=== PATIENT | female | born 1995 | race Caucasian/White ===

== ENCOUNTER 2018-06-27 09:32 | Emergency (ER) | payer OTHER ==
[~2018-06-27 09:32] MED LIST: BUDE8.43 NS; CETI-176 PO; CHOL100052 PO; EPIN0.3P15 IM; EVEP1CAP2 PO; FLAX100029 PO; LOOVRAL PO; MONT10TA PO; SERT-1 PO
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
--- NOTE | 2018-06-27 10:29 | RADIOLOGY IMAGING REPORT ---
[place] [facility] [place]: Breanna Torres : 1995 MR: [id number] V: [id number] EXAM DATE: ORDERING PHYSICIAN: FRANKIE DORADO TECHNOLOGIST: Location: [facility] Patient: Breanna Torres : 1995 Visit/Account:[id number] Date of Sevice: 06/27/2018 EXAMINATION: CT cervical spine without IV contrast HISTORY: In the CC COMPARISON: None. TECHNIQUE: Axial images were obtained from the skull base through the upper thoracic spine without I V contrast administration. Coronal and sagittal reformatted images were obtained from the axial [facility] e data. One of the following dose optimization techniques was utilized in the performance of this exam: Autom ated exposure control; adjustment of the mA and/or kV according to the patient's size; or use of an i terative reconstruction technique. Specific details can be referenced in the facility's radiology C T exam operational policy. FINDINGS: Alignment: Reversal the normal cervical lordosis; likely secondary to patient positioning or muscular spasm Cranio-cervical junction: Negative. Vertebral bodies: Negative. Posterior elements: Negative. Hardware: None. Disc Spaces: Negative. Soft tissues: Negative. Visualized upper chest: Negative. IMPRESSION: 1. No acute fracture or acute subluxation within the cervical spine. Report Dictated By: Braxton Loera DO at 06/27/2018 10:21 AM Report E-Signed By: Braxton Loera DO at 06/27/2018 10:25 AM WSN:[id number]
[2018-06-27 10:49] VITALS: BP 129/77
== END 2018-06-27 10:50 | disposition home or self-care (01) ==
LOC: ER 09:57
DX: S16.1XXA Strain of muscle, fascia and tendon at neck level, initial encounter (principal); V49.60XA Unspecified car occupant injured in collision with unspecified motor vehicles in traffic accident, initial encounter
CPT/HCPCS: 72125; 99284

== ENCOUNTER → 2018-07-22 | Outpatient (CLI) | payer OTHER ==
[~2018-07-22] MED LIST changes: +SERT-181 PO
--- NOTE | 2018-07-22 09:26 | RADIOLOGY IMAGING REPORT ---
FACILITY: [facility] PATIENT NAME: Breanna Torres : 1995 MR: [id number] V: [id number] EXAM DATE: ORDERING PHYSICIAN: SERGEI MCWILLIAMS TECHNOLOGIST: Location: [facility] Patient: Breanna Torres : 1995 Visit/Account:[id number] Date of Sevice: 07/22/2018 Pelvic ultrasound HISTORY: Pelvic pain. COMPARISON: None available. Findings: Standard endovaginal pelvic ultrasound with color flow and spectral analysis. Uterus: Uterus measurement: 7.4 x 4.7 x 2.8 cm Endometrium measurement: 16 mm The endometrium and myometrium are homogeneous with no suspicious mass or vascular abnormality identi fied. Adnexa: Right ovary: 2.3 x 1.7 x 1.2 cm Left ovary: 1.8 x 1.7 x 1.5 cm No suspicious ovarian or adnexal mass. Normal arterial and venous flow is documented within each ova ry on Doppler evaluation. Free fluid: Mild to moderate free fluid. Urinary bladder: Empty IMPRESSION: 1. Mild to moderate free fluid in the pelvis, possibly physiologic. 2. Otherwise normal pelvic ultrasound. Report Dictated By: Vijay Syed MD at 07/22/2018 9:21 AM Report E-Signed By: Vijay Syed MD at 07/22/2018 9:22 AM WSN:[id number]
== END ==
LOC: RAD 08:33
PROVIDERS: ATTEND Obstetrics & Gynecology
DX: Z02.9 Encounter for administrative examinations, unspecified (principal)

== ENCOUNTER 2018-09-29 01:18 | Emergency (ER) | payer SELFPAY ==
[~2018-09-29 01:18] MED LIST changes: +LORA10CA3 PO
--- NOTE | 2018-09-29 01:26 | ER Report ---
History and Physical Time Seen By MD: 01:23 HPI/ROS CHIEF COMPLAINT: Chest pain, pleuritic in nature, upper abdominal pain HISTORY OF PRESENT ILLNESS: Patient is a 23-year-old female here with complaints of several day history of left upper chest pain, radiation down her left side into her upper abdomen. Patient initially thought that her pain was caused by musculoskeletal strain however pain reportedly worsened and has a pleuritic component to it. Denies prior history of similar symptoms. Patient is maintaining SPO2 greater than 92%, denies cough, fevers or chills. Patient is hemodynamically stable at time of evaluation. REVIEW OF SYSTEMS: Constitutional: No fever, no chills. Eyes: No discharge. ENT: No sore throat. Cardiovascular: + Left sided chest pain, no palpitations. Pleuritic component worse with inspiration Respiratory: No cough, no shortness of breath. Gastrointestinal: + Mild left upper abdominal pain, no vomiting. Genitourinary: No hematuria. Musculoskeletal: No back pain. Skin: No rashes. Neurological: No headache. Allergies: Coded Allergies: shellfish derived (Verified Allergy, Severe, throat tight, hives, 09/29/18) Home Meds Active Scripts Ondansetron 4 Mg Odt (ONDANSETRON 4 MG ODT) 4 Mg Tab.rapdis, 4 MG PO Q8H PRN for NAUSEA, #20 TAB Prov:OLIVIER YOU DO 09/29/18 Rivaroxaban 15 Mg (XARELTO 15 MG) 15 Mg Tablet, 15 MG PO BID for 21 Days, #42 TAB Prov:FRANKIE DORADO DO 09/29/18 Sertraline Hcl (SERTRALINE HCL) 100 Mg Tablet, 1 TAB PO QDAY, #90 TAB 3 Refills Prov:SERGEI MCWILLIAMS MD 07/02/18 Norgestrel-Ethinyl Estradiol (LOW-OGESTREL) 1 Each Tab, 1 EACH PO DAILY, #3 PACK 4 Refills Prov:SERGEI MCWILLIAMS MD 07/02/18 Reported Medications [place]/Linoleic/Gamoleni (EVENING PRIMROSE 1,000 MG SFTG) 1,000 Mg Capsule, 1000 MG PO QDAY, CAPSULE 09/29/18 Cholecalciferol (Vitamin D3) (VITAMIN D3) 1,000 Unit Tablet, 1000 UNIT PO QDAY, TAB 09/29/18 Loratadine (CLARITIN) 10 Mg Capsule, 10 MG PO DAILY, CAPSULE 08/17/18 Montelukast Sodium (SINGULAIR) 10 Mg Tablet, 1 TAB PO QDAY, TAB 12/02/17 Discontinued Reported Medications Flaxseed Oil (FLAXSEED OIL) 1,000 Mg Capsule, 1000 MG PO DAILY, CAPSULE 12/02/17 Smoking Status: Never Smoker Constitutional Vital Sign - Last 24 Hours 09/29/18 09/29/18 09/29/18 09/29/18 01:30 01:32 01:33 02:00 Temp 98.8 Pulse 86 89 Resp 11 B/P (MAP) 116/80 (92) 118/79 116/75 (89) Pulse Ox 95 95 O2 Delivery Room Air 09/29/18 09/29/18 09/29/18 09/29/18 02:03 02:18 02:30 02:33 Pulse 86 95 90 B/P (MAP) 116/84 (95) Pulse Ox 96 89 93 09/29/18 09/29/18 09/29/18 09/29/18 03:18 03:23 03:30 03:38 Pulse 81 106 88 Resp 23 22 15 B/P (MAP) 115/80 (92) Pulse Ox 92 95 94 09/29/18 03:53 Pulse 87 Resp 31 Pulse Ox 95 Intake and Output 09/28/18 09/28/18 09/29/18 15:02 23:02 07:02 Intake Total 1000 ml Balance 1000 ml Physical Exam General Appearance: The patient is alert, has no immediate need for airway protection and no signs of toxicity. No acute distress, maintaining oxygen saturations greater than 92% Eyes: Pupils equal and round no pallor or injection. ENT, Mouth: Mucous membranes are moist. Respiratory: There are no retractions, lungs are clear to auscultation. Cardiovascular: Regular rate and rhythm. Gastrointestinal: Abdomen is soft and non tender, no masses, bowel sounds normal. Neurological: No focal neurological deficits Skin: Warm and dry, no rashes. Musculoskeletal: Neck is supple non tender. Extremities are nontender, nonswollen and have full range of motion. DIFFERENTIAL DIAGNOSIS: After history and physical exam differential diagnosis was considered for chest pain including but not limited to myocardial ischemia, pericarditis pulmonary embolus, chest wall pain, pleural inflammation and pulmonary infectious causes. Medical Decision Making Data Points Result Diagram: 09/29/18 0155 09/29/18 0155 Laboratory Hematology Test 09/29/18 01:20 09/29/18 01:55 Urine Color Yellow Urine Clarity Clear Urine pH 7.0 pH (4.8-9.5) Urine Specific [place] 1.024 Urine Protein Negative mg/dL (NEGATIVE) Urine Glucose (UA) Negative mg/dL (NEGATIVE) Urine Ketones Negative mg/dL (NEGATIVE) Urine Blood Negative (NEGATIVE) Urine Nitrite Negative (NEGATIVE) Urine Bilirubin Negative (NEGATIVE) Urine Urobilinogen 0.2 mg/dL (0.2-1.9) Urine Leukocyte Esterase Trace (NEGATIVE) Urine RBC 2 /HPF (0-2/HPF) Urine WBC 2 /HPF (0-5/HPF) Urine Squamous Epithelial Cells Many /LPF (</=FEW) Urine Bacteria Negative /HPF (NONE-FEW) Urine Mucus Few /HPF (NONE-FEW) Red Blood Count 4.84 M/uL (4.17-5.56) Mean Corpuscular Volume 90.9 fL (80.0-96.0) Mean Corpuscular Hemoglobin 31.2 pg (26.0-33.0) Mean Corpuscular Hemoglobin Concent 34.3 g/dL (32.0-36.0) Red Cell Distribution Width 12.7 % (11.5-14.5) Mean Platelet Volume 8.5 fL (7.2-11.1) Neutrophils (%) (Auto) 60.7 % (39.4-72.5) Lymphocytes (%) (Auto) 26.3 % (17.6-49.6) Monocytes (%) (Auto) 9.5 % (4.1-12.4) Eosinophils (%) (Auto) 3.2 % (0.4-6.7) Basophils (%) (Auto) 0.3 % (0.3-1.4) Nucleated RBC Relative Count (auto) 0.0 /100WBC Neutrophils # (Auto) 7.6 K/uL (2.0-7.4) Lymphocytes # (Auto) 3.3 K/uL (1.3-3.6) Monocytes # (Auto) 1.2 K/uL (0.3-1.0) Eosinophils # (Auto) 0.4 K/uL (0.0-0.5) Basophils # (Auto) 0.0 K/uL (0.0-0.1) Nucleated RBC Absolute Count (auto) 0.00 K/uL D-Dimer Quantitative (PE/DVT) 2.22 ug/ml (0-0.50) Sodium Level 139 mmol/L (137-145) Potassium Level 3.8 mmol/L (3.5-5.0) Chloride Level 105 mmol/L (98-107) Carbon Dioxide Level 24 mmol/L (22-31) Blood Urea Nitrogen 13 mg/dl (7-18) Creatinine 0.90 mg/dl (0.52-1.04) Glomerular Filtration Rate Calc > 60.0 Random Glucose 99 mg/dl (75-110) Calcium Level 9.6 mg/dl (8.4-10.2) Total Bilirubin 0.4 mg/dl (0.2-1.3) Aspartate Amino Transf (AST/SGOT) 27 U/L (0-35) Alanine Aminotransferase (ALT/SGPT) 33 U/L (0-56) Alkaline Phosphatase 65 U/L (0-126) Troponin I < 0.012 ng/ml Total Protein 7.4 g/dl (6.3-8.2) Albumin 4.0 g/dl (3.5-5.0) Lipase 56 U/L (23-300) Human Chorionic Gonadotropin, Qual Negative (NEGATIVE) Chemistry Test 09/29/18 01:20 09/29/18 01:55 Urine Color Yellow Urine Clarity Clear Urine pH 7.0 pH (4.8-9.5) Urine Specific [place] 1.024 Urine Protein Negative mg/dL (NEGATIVE) Urine Glucose (UA) Negative mg/dL (NEGATIVE) Urine Ketones Negative mg/dL (NEGATIVE) Urine Blood Negative (NEGATIVE) Urine Nitrite Negative (NEGATIVE) Urine Bilirubin Negative (NEGATIVE) Urine Urobilinogen 0.2 mg/dL (0.2-1.9) Urine Leukocyte Esterase Trace (NEGATIVE) Urine RBC 2 /HPF (0-2/HPF) Urine WBC 2 /HPF (0-5/HPF) Urine Squamous Epithelial Cells Many /LPF (</=FEW) Urine Bacteria Negative /HPF (NONE-FEW) Urine Mucus Few /HPF (NONE-FEW) White Blood Count 12.6 k/uL (4.5-11.0) Red Blood Count 4.84 M/uL (4.17-5.56) Hemoglobin 15.1 g/dL (12.0-16.0) Hematocrit 44.0 % (34.0-47.0) Mean Corpuscular Volume 90.9 fL (80.0-96.0) Mean Corpuscular Hemoglobin 31.2 pg (26.0-33.0) Mean Corpuscular Hemoglobin Concent 34.3 g/dL (32.0-36.0) Red Cell Distribution Width 12.7 % (11.5-14.5) Platelet Count 241 K/uL (150-450) Mean Platelet Volume 8.5 fL (7.2-11.1) Neutrophils (%) (Auto) 60.7 % (39.4-72.5) Lymphocytes (%) (Auto) 26.3 % (17.6-49.6) Monocytes (%) (Auto) 9.5 % (4.1-12.4) Eosinophils (%) (Auto) 3.2 % (0.4-6.7) Basophils (%) (Auto) 0.3 % (0.3-1.4) Nucleated RBC Relative Count (auto) 0.0 /100WBC Neutrophils # (Auto) 7.6 K/uL (2.0-7.4) Lymphocytes # (Auto) 3.3 K/uL (1.3-3.6) Monocytes # (Auto) 1.2 K/uL (0.3-1.0) Eosinophils # (Auto) 0.4 K/uL (0.0-0.5) Basophils # (Auto) 0.0 K/uL (0.0-0.1) Nucleated RBC Absolute Count (auto) 0.00 K/uL D-Dimer Quantitative (PE/DVT) 2.22 ug/ml (0-0.50) Glomerular Filtration Rate Calc > 60.0 Calcium Level 9.6 mg/dl (8.4-10.2) Total Bilirubin 0.4 mg/dl (0.2-1.3) Aspartate Amino Transf (AST/SGOT) 27 U/L (0-35) Alanine Aminotransferase (ALT/SGPT) 33 U/L (0-56) Alkaline Phosphatase 65 U/L (0-126) Troponin I < 0.012 ng/ml Total Protein 7.4 g/dl (6.3-8.2) Albumin 4.0 g/dl (3.5-5.0) Lipase 56 U/L (23-300) Human Chorionic Gonadotropin, Qual Negative (NEGATIVE) Coagulation Test 09/29/18 01:55 D-Dimer Quantitative (PE/DVT) 2.22 ug/ml Urinalysis Test 09/29/18 01:20 Urine Color Yellow Urine Clarity Clear Urine pH 7.0 pH (4.8-9.5) Urine Specific [place] 1.024 Urine Protein Negative mg/dL (NEGATIVE) Urine Glucose (UA) Negative mg/dL (NEGATIVE) Urine Ketones Negative mg/dL (NEGATIVE) Urine Blood Negative (NEGATIVE) Urine Nitrite Negative (NEGATIVE) Urine Bilirubin Negative (NEGATIVE) Urine Urobilinogen 0.2 mg/dL (0.2-1.9) Urine Leukocyte Esterase Trace (NEGATIVE) Urine RBC 2 /HPF (0-2/HPF) Urine WBC 2 /HPF (0-5/HPF) Urine Squamous Epithelial Cells Many /LPF (</=FEW) Urine Bacteria Negative /HPF (NONE-FEW) Urine Mucus Few /HPF (NONE-FEW) EKG/Imaging Imaging PATIENT NAME: Breanna Torres : 1995 MR: [id number] V: [id number] EXAM DATE: ORDERING PHYSICIAN: FRANKIE DORADO TECHNOLOGIST: Location: [facility] Patient: Breanna Torres : 1995 Visit/Account:[id number] Date of Sevice: 09/29/2018 CT ABDOMEN PELVIS W/ CON HISTORY: Pain with deep breathing on left side of abdomen for 3 days. COMPARISON: None. CT pulmonary angiogram was performed at the same time as the current examination. TECHNIQUE: Axial images were obtained from the lung bases through the symphysis pubis with intravenous contrast. Sagittal and coronal reformats were performed. One of the following dose optimization techniques was utilized in the performance of this exam: Automated exposure control; adjustment of the mA and/or kV according to the patient's size; or use of an iterative reconstruction technique. Specific details can be referenced in the facility's radiology CT exam operational policy. CONTRAST: 75 mL IV Isovue-370. FINDINGS: LOWER CHEST: Please see the CT pulmonary angiogram report that is dictated separately LIVER: Normal. GALLBLADDER/BILIARY: Contracted gallbladder has a normal appearance. No intrahepatic or extrahepatic ductal dilation. PANCREAS: Normal. SPLEEN: Normal. ADRENALS: Normal. KIDNEYS/URETERS/BLADDER: Normal. GI/MESENTERY/PERITONEAL CAVITY: There is no bowel obstruction. There is no wall thickening or pericolonic stranding. The appendix is normal. No free air. There is a moderate amount of simple pelvic free fluid that tracks into the right lower quadrant. VESSELS: No atherosclerotic disease. No aneurysm. No dissection. NODES: Normal. PELVIS: Uterus and ovaries are normal. There are pelvic phleboliths. BONES/VERTEBRA/SOFT TISSUES: There are numerous Schmorl nodes. Vertebral body heights are maintained. No listhesis. IMPRESSION: 1. No findings in the abdomen or pelvis to account for the patient's symptoms. 2. Moderate simple pelvic free fluid is likely physiologic. 3. Please see the CT pulmonary angiogram report dictated separately regarding positive findings in the chest. PATIENT NAME: Breanna Torres : 1995 MR: [id number] V: [id number] EXAM DATE: ORDERING PHYSICIAN: FRANKIE DORADO TECHNOLOGIST: Location: [facility] Patient: Breanna Torres : 1995 Visit/Account:[id number] Date of Sevice: 09/29/2018 CTA CHEST WW/O CNTR (PULM ANG) HISTORY: Elevated d-dimer. COMPARISON: None. CT abdomen and pelvis was performed at the same time as the current examination. TECHNIQUE: Pulmonary embolus protocol - Thin-slice axial imaging of the chest was performed during maximal pulmonary arterial opacification with intravenous nonionic iodinated contrast. 3D coronal slab MIPs and 2D reconstructions in the coronal and sagittal planes were performed to aid in pulmonary embolus detection. [employer] images have been stored on PACS. One of the following dose optimization techniques was utilized in the performance of this exam: Automated exposure control; adjustment of the mA and/or kV according to the patient's size; or use of an iterative reconstruction technique. Specific details can be referenced in the facility's radiology CT exam operational policy. CONTRAST: 75 mL of IV Isovue-370. FINDINGS: PULMONARY ARTERIES: There is adequate opacification of the pulmonary arteries to the segmental branches. There are filling defects within segmental and subsegmental left lower lobe and subsegmental right lower lobe pulmonary arteries. Pulmonary arteries are normal in caliber. THORACIC INLET: Normal. AORTA: No aneurysm or dissection. There is no atherosclerosis of the aorta. HEART/PERICARDIUM: The heart is normal. There is no ventricular septal deviation. There is no pericardial effusion. There is no coronary artery calcification. MEDIASTINUM/SARAH: Normal mediastinum. No lymphadenopathy. LUNGS/PLEURA: There is a trace left pleural effusion. There is patchy opacity in the left lower lobe greater than right. There is a wedge-shaped left lower lobe opacity (image 68 series 3). No pneumothorax. The airways are normal. UPPER ABDOMEN: Please see the CT abdomen and pelvis report that is dictated sep arately. MUSCULOSKELETAL/VERTEBRA/BODY WALL: There are Schmorl nodes. Vertebral body heights are maintained. Alignment is normal. IMPRESSION: 1. Subsegmental right lower lobe and segmental and subsegmental left lower lobe pulmonary emboli. Overall clot burden is mild. No heart strain. 2. Wedge-shaped opacity in the left lower lobe is suspicious for developing pulmonary infarct. 3. Trace left pleural effusion is likely reactive. These findings were discussed by phone with FRANKIE DORADO on 09/29/2018 3:15 AM. ED Course/Re-evaluation ED Course Patient is a 23-year-old female here with complaints of pleuritic left sided chest pain, worse with inspiration. Denies cough, fevers or chills. Patient was found to have a negative troponin but her d-dimer was markedly elevated prompting CTA of the chest and CT with IV contrast of the abdomen and pelvis due to complaints of left-sided abdominal pain. CT of the abdomen and pelvis was unremarkable. CTA of the chest identified bilateral pulmonary embolisms with mild clot burden and no evidence of right heart strain. Patient was started on Xarelto in given scripts for 21 days supply. Patient was advised to follow up closely with her PCP in order to discuss further treatment and ongoing care. Patient was stable throughout course and maintaining oxygen saturations greater than 92% during her stay. Return precautions provided. Close PCP follow-up recommended. Decision to Disposition Date: Sep 29, 2018 Decision to Disposition Time: 03:43 Depart Departure Latest Vital Signs Vital Signs Date Time Temp Pulse Resp B/P (MAP) Pulse Ox O2 Delivery O2 Flow Rate FiO2 09/29/18 03:53 87 31 95 09/29/18 03:30 115/80 (92) 09/29/18 01:32 98.8 Room Air Impression: Primary Impression: Pulmonary embolism and infarction Condition: Improved Disposition: HOME OR SELF-CARE New Scripts Rivaroxaban 15 Mg (XARELTO 15 MG) 15 Mg Tablet 15 MG PO BID for 21 Days, #42 TAB Prov: FRANKIE DORADO DO 09/29/18 Patient Instructions: Pulmonary Embolism (DC) Additional Instructions: Please take Xarelto 1 tablet twice daily with food for 21 days. Please follow up closely with your family doctor in order to discuss further treatment. After 21 days if you decide to continue with this medication, you will be switched to 20 mg once daily. Please return promptly if you develop increasing shortness breath, chest pain, fevers, cough, nausea, vomiting. FRANKIE DORADO DO Sep 29, 2018 01:25
[2018-09-29] MEDS ORDERED: [UNRECOGNIZED DRUG - CODE] PO (01:38)
[2018-09-29] MEDS ORDERED: CHOL10005 PO (01:38)
[2018-09-29] MEDS ORDERED: NS(*) 0.9% 1000 ML BAG 1,000 ML IV ONE (01:45)
[2018-09-29] MEDS ORDERED: fentaNYL CITR 100 MCG/2 ML AMP IVP ONE (01:45)
[2018-09-29] MEDS ORDERED: ONDANSETRON 4 MG/2 ML VIAL IVP ONE (01:50)
[2018-09-29] MEDS ORDERED: IOPAMIDOL 76% 100 ML INFUS BTL 100 ML ONE (01:54)
[2018-09-29 02:23] LABS: PLATELET COUNT, AUTOMATED 241 K/uL (150-450)
[2018-09-29] MEDS ORDERED: NS(*) 0.9% 50 ML BAG 50 ML ONE (02:50)
--- NOTE | 2018-09-29 03:24 | RADIOLOGY IMAGING REPORT ---
FACILITY: [facility] PATIENT NAME: Breanna Torres : 1995 MR: [id number] V: [id number] EXAM DATE: ORDERING PHYSICIAN: FRANKIE DORADO TECHNOLOGIST: Location: [facility] Patient: Breanna Torres : 1995 Visit/Account:[id number] Date of Sevice: 09/29/2018 CTA CHEST WW/O CNTR (PULM ANG) HISTORY: Elevated d-dimer. COMPARISON: None. CT abdomen and pelvis was performed at the same time as the current examination. TECHNIQUE: Pulmonary embolus protocol - Thin-slice axial imaging of the chest was performed during ma ximal pulmonary arterial opacification with intravenous nonionic iodinated contrast. 3D coronal slab MIPs and 2D reconstructions in the coronal and sagittal planes were performed to aid in pulmonary emb olus detection. Financial Assistant images have been stored on PACS. One of the following dose optimization techniques was utilized in the performance of this exam: Autom ated exposure control; adjustment of the mA and/or kV according to the patient's size; or use of an i terative reconstruction technique. Specific details can be referenced in the facility's radiology CT exam operational policy. CONTRAST: 75 mL of IV Isovue-370. FINDINGS: PULMONARY ARTERIES: There is adequate opacification of the pulmonary arteries to the segmental branch es. There are filling defects within segmental and subsegmental left lower lobe and subsegmental righ t lower lobe pulmonary arteries. Pulmonary arteries are normal in caliber. THORACIC INLET: Normal. AORTA: No aneurysm or dissection. There is no atherosclerosis of the aorta. HEART/PERICARDIUM: The heart is normal. There is no ventricular septal deviation. There is no pericar dial effusion. There is no coronary artery calcification. MEDIASTINUM/SARAH: Normal mediastinum. No lymphadenopathy. LUNGS/PLEURA: There is a trace left pleural effusion. There is patchy opacity in the left lower lobe greater than right. There is a wedge-shaped left lower lobe opacity (image 68 series 3). No pneumotho rax. The airways are normal. UPPER ABDOMEN: Please see the CT abdomen and pelvis report that is dictated separately. MUSCULOSKELETAL/VERTEBRA/BODY WALL: There are Schmorl nodes. Vertebral body heights are maintained. A lignment is normal. IMPRESSION: 1. Subsegmental right lower lobe and segmental and subsegmental left lower lobe pulmonary emboli. Ove rall clot burden is mild. No heart strain. 2. Wedge-shaped opacity in the left lower lobe is suspicious for developing pulmonary infarct. 3. Trace left pleural effusion is likely reactive. These findings were discussed by phone with FRANKIE DORADO on 09/29/2018 3:15 AM. Report Dictated By: Candy Jaramillo at 09/29/2018 3:08 AM Report E-Signed By: Candy Jaramillo at 09/29/2018 3:16 AM WSN:[id number]
--- NOTE | 2018-09-29 03:28 | RADIOLOGY IMAGING REPORT ---
FACILITY: [facility] [place] PATIENT NAME: Breanna Torres : 1995 MR: [id number] V: [id number] EXAM DATE: ORDERING PHYSICIAN: FRANKIE DORADO TECHNOLOGIST: Location: [facility] [place] Patient: Breanna Torres : 1995 Visit/Account:[id number] Date of Sevice: 09/29/2018 CT ABDOMEN PELVIS W/ CON HISTORY: Pain with deep breathing on left side of abdomen for 3 days. COMPARISON: None. CT pulmonary angiogram was performed at the same time as the current examination. TECHNIQUE: Axial images were obtained from the lung bases through the symphysis pubis with intravenou s contrast. Sagittal and coronal reformats were performed. One of the following dose optimization techniques was utilized in the performance of this exam: Autom ated exposure control; adjustment of the mA and/or kV according to the patient's size; or use of an i terative reconstruction technique. Specific details can be referenced in the facility's radiology CT exam operational policy. CONTRAST: 75 mL IV Isovue-370. FINDINGS: LOWER CHEST: Please see the CT pulmonary angiogram report that is dictated separately LIVER: Normal. GALLBLADDER/BILIARY: Contracted gallbladder has a normal appearance. No intrahepatic or extrahepatic ductal dilation. PANCREAS: Normal. SPLEEN: Normal. ADRENALS: Normal. KIDNEYS/URETERS/BLADDER: Normal. GI/MESENTERY/PERITONEAL CAVITY: There is no bowel obstruction. There is no wall thickening or pericol onic stranding. The appendix is normal. No free air. There is a moderate amount of simple pelvic free fluid that tracks into the right lower quadrant. VESSELS: No atherosclerotic disease. No aneurysm. No dissection. NODES: Normal. PELVIS: Uterus and ovaries are normal. There are pelvic phleboliths. BONES/VERTEBRA/SOFT TISSUES: There are numerous Schmorl nodes. Vertebral body heights are maintained. No listhesis. IMPRESSION: 1. No findings in the abdomen or pelvis to account for the patient's symptoms. 2. Moderate simple pelvic free fluid is likely physiologic. 3. Please see the CT pulmonary angiogram report dictated separately regarding positive findings in th e chest. Report Dictated By: Candy Jaramillo at 09/29/2018 3:16 AM Report E-Signed By: Candy Jaramillo at 09/29/2018 3:23 AM WSN:[id number]
[2018-09-29 03:30] VITALS: BP 115/80
[2018-09-29] MEDS ORDERED: RIVAROXABAN 10 MG TAB PO ONE (03:45)
[2018-09-29] MEDS ORDERED: RIVA15TA PO (03:47)
[2018-09-29] MEDS ORDERED: ONDA4TAB9 PO (17:12)
[2018-10-01] MEDS ORDERED: LOR5/325 PO (17:21)
== END 2018-09-29 04:11 | disposition home or self-care (01) ==
LOC: ER 01:29
DX: I26.99 Other pulmonary embolism without acute cor pulmonale (principal)
CPT/HCPCS: 71275; 74177; 81001; 83690; 84484; 84703; 85025; 85379; 96361; 96374; 96375; 99284; J2405; J3010; J7030; J7050; Q9967; 82040; 82247; 82310; 82374; 82435; 82565; 82947; 84075; 84132; 84155; 84295; 84450; 84460; 84520

== ENCOUNTER → 2018-10-01 | Emergency (ER) | payer OTHER ==
[~2018-10-01] MED LIST changes: +APAP/HYDROCODONE 325/7.5 TAB PO ONE; +CHOL10005 PO; +IOPAMIDOL 76% 100 ML INFUS BTL 100 ML ONE; +LOR5/325 PO; +ONDA4TAB9 PO; +RIVA15TA PO; +[UNRECOGNIZED DRUG - CODE] PO
--- NOTE | 2018-10-01 14:06 | ER Report ---
History and Physical Time Seen By MD: 14:02 Hx. of Stated Complaint: Pt. having endometrial pain. Had to stop taking her control pills, due to pulmonary embolisms in both lungs. Has been off her control for 3 days, now pain is unbearable and nothing over the counter is working. HPI/ROS CHIEF COMPLAINT: Abdominal pain HISTORY OF PRESENT ILLNESS: Patient is 23-year-old female recently diagnosed with pulmonary emboli who comes emergency Department today with abdominal pain patient also has a presumed diagnosis of endometriosis which is yet to be confirmed is unable to do a laparoscopic procedure secondary to her recent diagnosis of pulmonary emboli and her current utilization of blood thinners. Patient shows her pain is generalized across the entire abdomen not localized to the epigastric suprapubic or inguinal areas. Described as dull and aching episodic comes and goes she was recently taken off of her control pills which they're using a control her endometriosis and subsequently her pain is Worse. Patient denies any diarrhea fever chills nausea vomiting chest pain currently but has had chest pain secondary to her pulmonary emboli. REVIEW OF SYSTEMS: Respiratory: No cough, no dyspnea. Cardiovascular: No chest pain, no palpitations. Gastrointestinal: No vomiting abdominal pain Musculoskeletal: No back pain. Remainder of the 14 system rev: Yes Allergies: Coded Allergies: shellfish derived (Verified Allergy, Severe, throat tight, hives, 10/01/18) Home Meds Active Scripts Ondansetron 4 Mg Odt (ONDANSETRON 4 MG ODT) 4 Mg Tab.rapdis, 4 MG PO Q8H PRN for NAUSEA, #20 TAB Prov:OLIVIER YOU DO 09/29/18 Rivaroxaban 15 Mg (XARELTO 15 MG) 15 Mg Tablet, 15 MG PO BID for 21 Days, #42 TAB Prov:FRANKIE DORADO DO 09/29/18 Sertraline Hcl (SERTRALINE HCL) 100 Mg Tablet, 1 TAB PO QDAY, #90 TAB 3 Refills Prov:SERGEI MCWILLIAMS MD 07/02/18 Norgestrel-Ethinyl Estradiol (LOW-OGESTREL) 1 Each Tab, 1 EACH PO DAILY, #3 PACK 4 Refills Prov:SERGEI MCWILLIAMS MD 07/02/18 Reported Medications Safia [place]/Linoleic/Gamoleni (EVENING PRIMROSE 1,000 MG SFTG) 1,000 Mg Capsule, 1000 MG PO QDAY, CAPSULE 09/29/18 Cholecalciferol (Vitamin D3) (VITAMIN D3) 1,000 Unit Tablet, 1000 UNIT PO QDAY, TAB 09/29/18 Loratadine (CLARITIN) 10 Mg Capsule, 10 MG PO DAILY, CAPSULE 08/17/18 Montelukast Sodium (SINGULAIR) 10 Mg Tablet, 1 TAB PO QDAY, TAB 12/02/17 Discontinued Reported Medications Flaxseed Oil (FLAXSEED OIL) 1,000 Mg Capsule, 1000 MG PO DAILY, CAPSULE 12/02/17 Reviewed Nurses Notes: Yes Old Medical Records Reviewed: Yes Smoking Status: Never Smoker Constitutional Vital Sign - Last 24 Hours 10/01/18 10/01/18 10/01/18 10/01/18 13:52 13:55 14:00 14:12 Pulse 106 92 Resp 20 B/P (MAP) 173/121 (138) 173/121 145/85 (105) Pulse Ox 95 95 O2 Delivery Room Air 10/01/18 10/01/18 10/01/18 10/01/18 14:30 14:42 15:00 15:12 Pulse 98 95 B/P (MAP) 154/87 (109) 140/90 (107) Pulse Ox 95 94 10/01/18 10/01/18 10/01/18 10/01/18 15:17 15:17 15:30 15:30 Pulse 91 91 B/P (MAP) ???/??? (1665) ???/??? (1665) Pulse Ox 94 94 10/01/18 10/01/18 10/01/18 10/01/18 15:47 15:47 16:00 16:00 Pulse 96 96 B/P (MAP) 144/88 (106) 144/88 (106) Pulse Ox 94 94 10/01/18 10/01/18 10/01/18 10/01/18 16:17 16:17 16:30 16:30 Pulse 84 84 B/P (MAP) 132/82 (99) 132/82 (99) Pulse Ox 93 93 10/01/18 10/01/18 10/01/18 16:47 16:47 17:00 Pulse 96 96 B/P (MAP) 107/59 (75) Pulse Ox 93 93 Physical Exam General Appearance: The patient is alert, has no immediate need for airway protection and no current signs of toxicity. [ ] Eyes: Pupils equal and round no injection. Respiratory: Chest is non tender, lungs are clear to auscultation. Cardiac: regular rate and rhythm [ ] Gastrointestinal: Abdomen is soft but tender to palpation in all 4 quadrants no rebound or guarding normal bowel sounds Musculoskeletal: Neck: Neck is supple and non tender. Extremities have full range of motion and are non tender. Skin: No rashes or lesions. [ ] DIFFERENTIAL DIAGNOSIS: After history and physical exam differential diagnosis was considered for endometriosis gastroenteritis pancreatitis enteritis gastroenteritis colitis Medical Decision Making Data Points Result Diagram: 10/01/18 1426 10/01/18 1426 Laboratory Hematology Test 10/01/18 14:26 Red Blood Count 5.12 M/uL (4.17-5.56) Mean Corpuscular Volume 91.7 fL (80.0-96.0) Mean Corpuscular Hemoglobin 31.6 pg (26.0-33.0) Mean Corpuscular Hemoglobin Concent 34.4 g/dL (32.0-36.0) Red Cell Distribution Width 13.1 % (11.5-14.5) Mean Platelet Volume 8.3 fL (7.2-11.1) Neutrophils (%) (Auto) 73.8 % (39.4-72.5) Lymphocytes (%) (Auto) 16.9 % (17.6-49.6) Monocytes (%) (Auto) 6.9 % (4.1-12.4) Eosinophils (%) (Auto) 1.7 % (0.4-6.7) Basophils (%) (Auto) 0.7 % (0.3-1.4) Nucleated RBC Relative Count (auto) 0.0 /100WBC Neutrophils # (Auto) 8.1 K/uL (2.0-7.4) Lymphocytes # (Auto) 1.9 K/uL (1.3-3.6) Monocytes # (Auto) 0.8 K/uL (0.3-1.0) Eosinophils # (Auto) 0.2 K/uL (0.0-0.5) Basophils # (Auto) 0.1 K/uL (0.0-0.1) Nucleated RBC Absolute Count (auto) 0.00 K/uL Sodium Level 143 mmol/L (137-145) Potassium Level 3.4 mmol/L (3.5-5.0) Chloride Level 104 mmol/L (98-107) Carbon Dioxide Level 24 mmol/L (22-31) Blood Urea Nitrogen 12 mg/dl (7-18) Creatinine 0.90 mg/dl (0.52-1.04) Glomerular Filtration Rate Calc > 60.0 Random Glucose 113 mg/dl (75-110) Calcium Level 10.0 mg/dl (8.4-10.2) Total Bilirubin 0.4 mg/dl (0.2-1.3) Aspartate Amino Transf (AST/SGOT) 40 U/L (0-35) Alanine Aminotransferase (ALT/SGPT) 50 U/L (0-56) Alkaline Phosphatase 77 U/L (0-126) Total Protein 8.3 g/dl (6.3-8.2) Albumin 4.4 g/dl (3.5-5.0) Lipase 52 U/L (23-300) Chemistry Test 10/01/18 14:26 White Blood Count 10.9 k/uL (4.5-11.0) Red Blood Count 5.12 M/uL (4.17-5.56) Hemoglobin 16.2 g/dL (12.0-16.0) Hematocrit 46.9 % (34.0-47.0) Mean Corpuscular Volume 91.7 fL (80.0-96.0) Mean Corpuscular Hemoglobin 31.6 pg (26.0-33.0) Mean Corpuscular Hemoglobin Concent 34.4 g/dL (32.0-36.0) Red Cell Distribution Width 13.1 % (11.5-14.5) Platelet Count 259 K/uL (150-450) Mean Platelet Volume 8.3 fL (7.2-11.1) Neutrophils (%) (Auto) 73.8 % (39.4-72.5) Lymphocytes (%) (Auto) 16.9 % (17.6-49.6) Monocytes (%) (Auto) 6.9 % (4.1-12.4) Eosinophils (%) (Auto) 1.7 % (0.4-6.7) Basophils (%) (Auto) 0.7 % (0.3-1.4) Nucleated RBC Relative Count (auto) 0.0 /100WBC Neutrophils # (Auto) 8.1 K/uL (2.0-7.4) Lymphocytes # (Auto) 1.9 K/uL (1.3-3.6) Monocytes # (Auto) 0.8 K/uL (0.3-1.0) Eosinophils # (Auto) 0.2 K/uL (0.0-0.5) Basophils # (Auto) 0.1 K/uL (0.0-0.1) Nucleated RBC Absolute Count (auto) 0.00 K/uL Glomerular Filtration Rate Calc > 60.0 Calcium Level 10.0 mg/dl (8.4-10.2) Total Bilirubin 0.4 mg/dl (0.2-1.3) Aspartate Amino Transf (AST/SGOT) 40 U/L (0-35) Alanine Aminotransferase (ALT/SGPT) 50 U/L (0-56) Alkaline Phosphatase 77 U/L (0-126) Total Protein 8.3 g/dl (6.3-8.2) Albumin 4.4 g/dl (3.5-5.0) Lipase 52 U/L (23-300) ED Course/Re-evaluation ED Course ED course because decision making 20 of hemotympanum abdominal pain history of endometriosis CT scan was without any abnormalities blood work also normal give her prescription for some pain medication for the next couple of days have her follow-up with primary care talk to her aunt who is a physician discussed the case in great detail believe that the fact that she is PEs and taken off of her control pills has had an effect on her chronic endometriosis pain this will be addressed on Thursday which means with [employer] doctor told to return indication for CAT scan was is making sure that we were missing any additional pathology a patient with discharge diagnosis abdominal pain Decision to Disposition Date: Oct 01, 2018 Decision to Disposition Time: 17:18 Depart Departure Latest Vital Signs Vital Signs Date Time Temp Pulse Resp B/P (MAP) Pulse Ox O2 Delivery O2 Flow Rate FiO2 10/01/18 17:00 107/59 (75) 10/01/18 16:47 96 93 10/01/18 13:55 20 Room Air Impression: Primary Impression: Abdominal pain Condition: Improved Disposition: HOME OR SELF-CARE Referrals: SERGEI MCWILLIAMS MD (PCP) 5 Days New Scripts Hydrocodone Bit/Acetaminophen (HYDROCODON-ACETAMINOPHEN 5-325) 1 Each Tablet 1 EACH PO Q4-6H PRN for PAIN, #12 0 Refills TAKE ONE TABLET BY MOUTH EVERY 4-6 HOURS NEEDED FOR PAIN Prov: MICHA GASTON MD 10/01/18 Patient Instructions: Abdominal Pain (ED) MICHA GASTON MD Oct 01, 2018 14:06
[2018-10-01 14:41] LABS: PLATELET COUNT, AUTOMATED 259 K/uL (150-450)
--- NOTE | 2018-10-01 16:04 | RADIOLOGY IMAGING REPORT ---
FACILITY: [facility] PATIENT NAME: Breanna Torres : 1995 MR: [id number] V: [id number] EXAM DATE: ORDERING PHYSICIAN: MICHA GASTON TECHNOLOGIST: Location: [facility] Patient: Breanna Torres : 1995 Visit/Account:[id number] Date of Sevice: 10/01/2018 CT abdomen and pelvis with IV contrast Indication: Pain and cramping. Comparison: 09/29/2018.. Technique: Axial CT images were obtained through the abdomen and pelvis during injection of nonioni c iodinated intravenous contrast. Reformatted coronal and sagittal images were also obtained. One of the following dose optimization techniques was utilized in the performance of this exam: Autom ated exposure control; adjustment of the mA and/or kV according to the patient's size; or use of an i terative reconstruction technique. Specific details can be referenced in the facility's radiology C T exam operational policy. Contrast: 75 ml of Isovue-370 IV contrast. Findings: Lower lung araya: Left lower lobe shows a lateral pleural-based wedge-shaped opacity which is unchan ged. The lung bases otherwise clear. Liver: No focal parenchymal abnormality of the liver. Biliary: Gallbladder appears unremarkable as well as the intra and extra hepatic biliary system. Pancreas: Normal appearance. Spleen: Normal appearance. Adrenal glands: Unremarkable. Kidneys / retroperitoneum: No evidence of nephrolithiasis or hydronephrosis. No focal abnormality. Bowel / peritoneum / mesenteries: Colon shows no focal normality. The appendix is normal. The small b owel shows no focal abnormality or obstruction. The stomach is unremarkable. Small amount of free fluid is again seen in the pelvis likely physiologic. No fluid collections, free air or areas of inflammation. Small umbilical hernia containing fat. Lymph node assessment: No pathologic adenopathy identified. Pelvic structures: Pelvic structures visualized within normal limits. Vessels: No significant atherosclerotic calcifications seen throughout a nonaneurysmal abdominal aort a and branches. Musculoskeletal / Body wall: No acute or aggressive osseous abnormality. IMPRESSION: 1. No acute intra-abdominal abnormality 2. The left lower lobe lung does show a peripheral wedge-shaped pleural-based opacity. This is simila r to the previous examination and likely represents a involving infarct from the recent pulmonary emb olism. 3. Other chronic stable findings as above. Report Dictated By: Jayant Leone at 10/01/2018 3:50 PM Report E-Signed By: Jayant Leone at 10/01/2018 3:58 PM [id number]
[2018-10-01 17:00] VITALS: BP 107/59
== END ==
LOC: ER 13:47
DX: R10.84 Generalized abdominal pain (principal); Z79.899 Other long term (current) drug therapy
CPT/HCPCS: 74177; 83690; 85025; 99284; Q9967; 82040; 82247; 82310; 82374; 82435; 82565; 82947; 84075; 84132; 84155; 84295; 84450; 84460; 84520

== ENCOUNTER → 2018-10-19 | Outpatient (CLI) | payer OTHER ==
[~2018-10-19] MED LIST changes: -APAP/HYDROCODONE 325/7.5 TAB PO ONE; -IOPAMIDOL 76% 100 ML INFUS BTL 100 ML ONE; +RIVA20TA PO
== END ==
LOC: LAB 16:12
PROVIDERS: ATTEND Emergency Medicine
DX: Z02.9 Encounter for administrative examinations, unspecified (principal)

== ENCOUNTER 2018-11-03 21:33 | Emergency (ER) | payer OTHER ==
--- NOTE | 2018-11-03 21:35 | ER Report ---
History and Physical Time Seen By MD: 21:31 HPI/ROS CHIEF COMPLAINT: Back pain HISTORY OF PRESENT ILLNESS: 23-year-old female who was diagnosed with bilateral pulmonary embolisms with similar back pain on 10/01/18 presents now after waking up from a nap with upper thoracic pain aggravated by deep inspiration quite sharp in nature. She notes no shortness of breath. She was packing some stuff up and working at a computer earlier today before she laid down for a nap. She has been seen by [employer] and is on progesterone only control. She was placed on Xarelto after she was diagnosed with primary embolisms. She has been compliant. She recently follow-up with internal medicine. Patient's concerned she may have a new pulmonary embolism. REVIEW OF SYSTEMS: Respiratory: No cough, no dyspnea. Cardiovascular: No chest pain, no palpitations. Gastrointestinal: No vomiting, no abdominal pain. Musculoskeletal: As above Allergies: Coded Allergies: shellfish derived (Verified Allergy, Severe, throat tight, hives, 11/03/18) Home Meds Active Scripts Tramadol Hcl (TRAMADOL HCL) 50 Mg Tablet, 1 TAB PO Q6H for PAIN, #30 MG TAKE ONE TABLET BY MOUTH EVERY SIX HOURS NEEDED Prov:THALIA BRADSHAW DO 11/03/18 Rivaroxaban 20 Mg (XARELTO 20 MG) 20 Mg Tablet, 20 MG PO DAILY, #30 TAB 2 Refills Prov:RIGO MERINO MD 10/19/18 Sertraline Hcl (SERTRALINE HCL) 100 Mg Tablet, 1 TAB PO QDAY, #90 TAB 3 Refills Prov:SERGEI MCWILLIAMS MD 07/02/18 Reported Medications Loratadine (CLARITIN) 10 Mg Capsule, 10 MG PO DAILY, CAPSULE 08/17/18 Montelukast Sodium (SINGULAIR) 10 Mg Tablet, 1 TAB PO QDAY, TAB 12/02/17 Discontinued Reported Medications Safia [place]/Linoleic/Gamoleni (EVENING PRIMROSE 1,000 MG SFTG) 1,000 Mg Capsule, 1000 MG PO QDAY, CAPSULE 09/29/18 Cholecalciferol (Vitamin D3) (VITAMIN D3) 1,000 Unit Tablet, 1000 UNIT PO QDAY, TAB 09/29/18 Discontinued Scripts Hydrocodone Bit/Acetaminophen (HYDROCODON-ACETAMINOPHEN 5-325) 1 Each Tablet, 1 EACH PO Q4-6H PRN for PAIN, #12 0 Refills TAKE ONE TABLET BY MOUTH EVERY 4-6 HOURS NEEDED FOR PAIN Prov:MICHA GASTON MD 10/01/18 Ondansetron 4 Mg Odt (ONDANSETRON 4 MG ODT) 4 Mg Tab.rapdis, 4 MG PO Q8H PRN for NAUSEA, #20 TAB Prov:OLIVIER YOU 09/29/18 Reviewed Nurses Notes: Yes Old Medical Records Reviewed: Yes Smoking Status: Never Smoker Constitutional Vital Sign - Last 24 Hours 11/03/18 21:38 Temp 99.2 Pulse 98 Resp 18 B/P (MAP) 140/93 Pulse Ox 97 O2 Delivery Room Air Physical Exam Vital signs stable, afebrile, pulse ox normal General Appearance: The patient is alert, has no immediate need for airway protection and no current signs of toxicity. Skin warm, dry, pink, no acute distress Eyes: Pupils equal and round no injection. Respiratory: Chest is non tender, lungs are clear to auscultation. Cardiac: regular rate and rhythm Gastrointestinal: Abdomen is soft and non tender, no masses, bowel sounds normal. Musculoskeletal: Neck: Neck is supple and non tender. Back: There is tenderness on palpation in the midline of the thoracic spine and thoracic musculature in the upper thoracic region. There is aggravation with skeletal movement., There is also increased discomfort with deep inspiration. Extremities have full range of motion and are non tender. No edema, no calf tenderness Skin: No rashes or lesions. DIFFERENTIAL DIAGNOSIS: After history and physical exam differential diagnosis was considered for back pain including but not limited to muscular pain, herniated disc, spine fracture, intra-abdominal causes and urinary tract infection. Medical Decision Making ED Course/Re-evaluation ED Course Patient was admitted to an examination room. H&P was done. The differential diagnoses was considered. Patient with upper thoracic back pain. She has a known history of pulmonary embolism. She's been compliant on her Xarelto for the last month. She woke up with new pain. Tonight she is wondering she has a new pulmonary embolism. At this point. She is on maximal medical therapy. I do not think a CT scan with contrast would provide any new information. I advised to continue on her Xarelto. Treat her pain is musculoskeletal with Tylenol and tramadol. Patient's advised to follow-up with primary care. She is unimproved in 2-4 days. Decision to Disposition Date: Nov 03, 2018 Decision to Disposition Time: 21:42 Depart Departure Latest Vital Signs Vital Signs Date Time Temp Pulse Resp B/P (MAP) Pulse Ox O2 Delivery O2 Flow Rate FiO2 11/03/18 21:38 99.2 98 18 140/93 97 Room Air Impression: Primary Impression: Thoracic back pain Additional Impression: History of pulmonary embolism Condition: Improved Disposition: HOME OR SELF-CARE Referrals: RIGO MERINO MD (PCP) New Scripts Tramadol Hcl (TRAMADOL HCL) 50 Mg Tablet 1 TAB PO Q6H for PAIN, #30 MG TAKE ONE TABLET BY MOUTH EVERY SIX HOURS NEEDED Prov: THALIA BRADSHAW DO 11/03/18 Patient Instructions: Back Pain (ED) Additional Instructions: Use Tylenol for pain relief Apply heating pad to the affected area Follow-up with Dr. mota if unimproved in 2-3 days Problem Qualifiers Primary Impression: Thoracic back pain Chronicity: acute Back pain laterality: midline Qualified Codes: M54.6 - Pain in thoracic spine THALIA BRADSHAW DO Nov 03, 2018 21:35
[2018-11-03 21:38] VITALS: BP 140/93
[2018-11-03] MEDS ORDERED: traMADol 50 MG TAB TH 2 TAB/BOTTLE PO ONE (21:45)
[2018-11-03] MEDS ORDERED: TRAM-420 PO (21:50)
[2018-11-08] MEDS ORDERED: MONT10TA PO (13:25)
== END 2018-11-03 22:01 | disposition home or self-care (01) ==
LOC: ER 21:49
DX: M54.6 Pain in thoracic spine (principal); Z86.711 Personal history of pulmonary embolism; Z79.01 Long term (current) use of anticoagulants
CPT/HCPCS: 99283; C9399